=== PATIENT | female | born 1980 | race Two or more races ===

== ENCOUNTER 2019-06-02 21:03 | Emergency (ER) | payer OTHER ==
[~2019-06-02] VITALS: Ht 162.6 cm; Wt 84.8 kg
[2019-06-02 21:10] VITALS: Ht 162.6 cm; Wt 84.8 kg
[2019-06-02 21:50] LABS: CALCIUM 8.9 mg/dL (8.5-10.1); CARBON DIOXIDE 26.4 mmol/L (21-32); CHLORIDE SERUM 105 mmol/L (98-107); CREATININE SERUM 0.7 mg/dL (0.6-1.0); GFR1 > 60 mL/min; GLUCOSE SERUM 104 mg/dL (74-106); POTASSIUM SERUM 3.5 mmol/L (3.5-5.1); SODIUM SERUM 141 mmol/L (136-145)
[2019-06-02 22:04] LABS: FREE T4 0.75 ng/dL (0.76-1.46)
[2019-06-03 00:30] VITALS: BP 108/63
== END 2019-06-03 00:30 | disposition home or self-care (01) ==
LOC: ED 21:03
PROVIDERS: Emergency Medicine
DX: M79.10 Myalgia, unspecified site (principal); R25.2 Cramp and spasm; E03.9 Hypothyroidism, unspecified; Z88.1 Allergy status to other antibiotic agents; Z88.2 Allergy status to sulfonamides
CPT/HCPCS: 84439; J1885; J7030; Q0092